=== PATIENT | female | born 1985 | race African-American/Black ===

== ENCOUNTER 2017-09-28 13:11 | Emergency (ER) | payer OTHER ==
[2017-09-28] MEDS ORDERED: NS 0.9% 1000 ML* 1,000 ML IV ONE (13:25)
[2017-09-28] MEDS ORDERED: Metoclopramide IV* 5 MG/ML 2 ML VIAL IV ONE (13:25)
[2017-09-28 14:08] LABS: ABS Basophils 0 10^3/ul (0-0.2); ABS Eosinophils 0 10^3/ul (0-0.6); ABS Lymphocytes 0.7 10^3/ul (1.0-4.8); ABS Monocytes 0.3 10^3/ul (0-0.8); ABS Neutrophils 8.4 10^3/ul (1.5-7.7); ABS Nucleated RBC 0 10^3/ul; Eosinophil % 0.1 % (0-6); Hematocrit 36 % (35-47); Lymphocyte % 7.7 % (25-47); Mean Corpuscular HGB Conc 34 g/dl (31-36); Mean Corpuscular Hemoglobin 30 pg (27-31); Mean Corpuscular Volume 90 fL (80-97); Mean Platelet Volume 8 um3 (7.4-10.4); Nucleated Red Blood Cells % 0; Platelet Count 212 10^3/ul (150-450); Red Blood Count 3.99 10^6/ul (4.0-5.4); Red Cell Distribution Width 13 % (10.5-15); White Blood Count 9.5 10^3/ul (3.5-10.8)
--- NOTE | 2017-09-28 14:17 | RAD ---
Indication: Left flank pain. CT of the abdomen and pelvis was performed without oral or IV contrast administration. Coronal and sagittal reconstructed images were obtained. Lung bases demonstrate no pleural fluid, nodules or masses. Heart is of normal size without evidence of pericardial effusion. Liver is normal in size. No focal lesions or intrahepatic ductal dilatation is noted. This bleeding is normal in size. The pancreas demonstrates no mass or pancreatic duct dilatation. Common duct is not dilated. The gallbladder demonstrates high density material in the dependent portion. I cannot totally exclude sludge within the gallbladder. No definite pericholecystic fluid is identified. No adrenal masses are noted. The left kidney is abnormal. There is a large high density crescent shaped mass surrounding the left kidney. There appears to be mass effect on the left kidney and this is consistent with a perinephric hematoma. The right kidney is unremarkable. No obvious hydronephrosis is noted. No retroperitoneal lymphadenopathy is noted. No dilated loops of bowel are noted. The uterus is ill-defined. Urinary bladder is unremarkable. I cannot exclude fluid or hemorrhage in the cul-de-sac. Colon is filled with stool. IMPRESSION: Large left perinephric hematoma. I cannot exclude free fluid or hemorrhage in the pelvis as the pelvic organs are poorly defined. Likely sludge within the gallbladder. Dr. Burden was notified of the results at 1413 hours.
[2017-09-28 14:30] LABS: EGFR Non-African American 76.4 (>60)
[2017-09-28 15:15] LABS: Urine Appearance Cloudy; Urine Blood Negative (Negative); Urine Color Yellow; Urine Ketones 1+ (Negative); Urine Protein 2+(100 mg/dL) (Negative); Urine Specific Gravity 1.016 (1.010-1.030); Urine Urobilinogen Negative (Negative)
[2017-09-28 16:05] VITALS: BP 118/81
--- NOTE | 2017-09-28 16:06 | ED ---
Dre Wheat Nilda, scribed for Carmelo Burden MD on 09/28/17 at 1337 . GI/ HPI - HPI Summary HPI Summary: This patient is a 32 year old F presenting to [facility] with a chief complaint of constant nausea for the past 2 weeks. She woke up today at 0500 with constant acute vomiting (7x [employer]), which is aggravated by PO intake, and alleviated by nothing. Patient reports moderate left flank pain radiating to lower back. The patient rates the pain 4/10 in severity. Patient denies burning with urination, urinary frequency, fever, and chills. LNMP 09/14/15. - History of Current Complaint Time Seen by Provider: 09/28/17 13:25 Stated Complaint: N/V FLANK PAIN Hx Obtained From: Patient Onset/Duration: Started Weeks Ago, Still Present Timing: Constant Current Severity: Moderate Location of Pain: Flank - left flank Pain Radiates to: Back Associated Signs and Symptoms: Positive: Other: - N/V, left flank pain radiating to lower back; negative burning with urination, frequency of urination , fever, and chills Aggravating Factor(s): Palpation Alleviating Factor(s): Nothing - Allergy/Home Medications Allergies/Adverse Reactions: Allergies Allergy/AdvReac Type Severity Reaction Status Date / Time loracarbef [From Lorabid] Allergy Intermediate Nausea Verified 09/28/17 13:56 PMH/Surg Hx/FS Hx/Imm Hx Sensory History: Denies: Hx Legally Blind EENT History: Denies: Hx Deafness - Surgical History Surgery Procedure, Year, and Place: Polypectomy uterine due to fibroids. - Family History Known Family History: Positive: Hypertension, Diabetes, Other - [place] - Social History Alcohol Use: None Hx Substance Use: No Substance Use Type: Reports: None Hx Tobacco Use: No Smoking Status (MU): Never Smoked Tobacco Review of Systems Negative: Fever, Chills Positive: Vomiting, Nausea Positive: flank pain - left radiating to lower back. Negative: burning, frequency All Other Systems Reviewed And Are Negative: Yes Physical Exam - Summary Physical Exam Summary: VITAL SIGNS: Reviewed. GENERAL: Patient is a well-developed and nourished female who is lying comfortable in the stretcher. Patient is not in any acute respiratory distress. HEAD AND FACE: No signs of trauma. No ecchymosis, hematomas or skull depressions. No sinus tenderness. EYES: PERRLA, EOMI x 2, No injected conjunctiva, no nystagmus. EARS: Hearing grossly intact. Ear canals and tympanic membranes are within normal limits. MOUTH: Oropharynx within normal limits. NECK: Supple, trachea is midline, no adenopathy, no JVD, no carotid bruit, no c- spine tenderness, neck with full ROM. CHEST: Symmetric, no tenderness at palpation LUNGS: Clear to auscultation bilaterally. No wheezing or crackles. CVS: Regular rate and rhythm, S1 and S2 present, no murmurs or gallops appreciated. ABDOMEN: Soft, mildly tender in pelvic area. No signs of distention. No rebound no guarding, and no masses palpated. Bowel sounds are normal. EXTREMITIES: FROM in all major joints, no edema, no cyanosis or clubbing. BACK: left CVA tenderness. NEURO: Alert and oriented x 3. No acute neurological deficits. Speech is normal and follows commands. SKIN: Dry and warm Triage Information Reviewed: Yes Vital Signs On Initial Exam: Initial Vitals Temp Pulse Resp BP Pulse Ox 99.2 F 71 16 124/87 100 09/28/17 14:27 09/28/17 14:27 09/28/17 14:27 09/28/17 14:27 09/28/17 14:27 Vital Signs Reviewed: Yes Diagnostics - Vital Signs Vital Signs Temp Pulse Resp BP Pulse Ox 09/28/17 14:27 99.2 F 71 16 124/87 100 - Laboratory Lab Results: Lab Results 09/28/17 09/28/17 09/28/17 Range/Units 13:56 13:56 13:56 WBC 9.5 (3.5-10.8) 10^3/ul RBC 3.99 L (4.0-5.4) 10^6/ul Hgb 12.0 (12.0-16.0) g/dl Hct 36 (35-47) % MCV 90 (80-97) fL MCH 30 (27-31) pg MCHC 34 (31-36) g/dl RDW 13 (10.5-15) % Plt Count 212 (150-450) 10^3/ul MPV 8 (7.4-10.4) um3 Neut % (Auto) 88.3 H (38-83) % Lymph % (Auto) 7.7 L (25-47) % [place] % (Auto) 3.5 (0-7) % Eos % (Auto) 0.1 (0-6) % Baso % (Auto) 0.4 (0-2) % Absolute Neuts (auto) 8.4 H (1.5-7.7) 10^3/ul Absolute Lymphs (auto) 0.7 L (1.0-4.8) 10^3/ul Absolute Monos (auto) 0.3 (0-0.8) 10^3/ul Absolute Eos (auto) 0 (0-0.6) 10^3/ul Absolute Basos (auto) 0 (0-0.2) 10^3/ul Absolute Nucleated RBC 0 10^3/ul Nucleated RBC % 0 Sodium 137 (133-145) mmol/L Potassium 3.7 (3.5-5.0) mmol/L Chloride 110 (101-111) mmol/L Carbon Dioxide 20 L (22-32) mmol/L Anion Gap 7 (2-11) mmol/L BUN 12 (6-24) mg/dL Creatinine 0.87 (0.51-0.95) mg/dL Est GFR ( Amer) 98.3 (>60) Est GFR (Non-Af Amer) 76.4 (>60) BUN/Creatinine Ratio 13.8 (8-20) Glucose 102 H (70-100) mg/dL Lactic Acid 1.1 (0.5-2.0) mmol/L Calcium 8.5 L (8.6-10.3) mg/dL Total Bilirubin 0.40 (0.2-1.0) mg/dL AST 13 (13-39) U/L ALT 7 (7-52) U/L Alkaline Phosphatase 34 (34-104) U/L C-Reactive Protein < 1.00 (< 5.00) mg/L Total Protein 6.6 (6.4-8.9) g/dL Albumin 3.8 (3.2-5.2) g/dL Globulin 2.8 (2-4) g/dL Albumin/Globulin Ratio 1.4 (1-3) Lipase < 10 L (11.0-82.0) U/L Beta HCG, Quant < 0.60 mIU/mL Urine Color Urine Appearance Urine pH (5-9) Ur Specific [place] (1.010-1.030) Urine Protein (Negative) Urine Ketones (Negative) Urine Blood (Negative) Urine Nitrate (Negative) Urine Bilirubin (Negative) Urine Urobilinogen (Negative) Ur Leukocyte Esterase (Negative) Urine WBC (Auto) (Absent) Urine RBC (Auto) (Absent) Ur Squamous Epith Cells (Absent) Urine Bacteria (Absent) Urine Glucose (Negative) 09/28/17 Range/Units 14:43 WBC (3.5-10.8) 10^3/ul RBC (4.0-5.4) 10^6/ul Hgb (12.0-16.0) g/dl Hct (35-47) % MCV (80-97) fL MCH (27-31) pg MCHC (31-36) g/dl RDW (10.5-15) % Plt Count (150-450) 10^3/ul MPV (7.4-10.4) um3 Neut % (Auto) (38-83) % Lymph % (Auto) (25-47) % [place] % (Auto) (0-7) % Eos % (Auto) (0-6) % Baso % (Auto) (0-2) % Absolute Neuts (auto) (1.5-7.7) 10^3/ul Absolute Lymphs (auto) (1.0-4.8) 10^3/ul Absolute Monos (auto) (0-0.8) 10^3/ul Absolute Eos (auto) (0-0.6) 10^3/ul Absolute Basos (auto) (0-0.2) 10^3/ul Absolute Nucleated RBC 10^3/ul Nucleated RBC % Sodium (133-145) mmol/L Potassium (3.5-5.0) mmol/L Chloride (101-111) mmol/L Carbon Dioxide (22-32) mmol/L Anion Gap (2-11) mmol/L BUN (6-24) mg/dL Creatinine (0.51-0.95) mg/dL Est GFR ( Amer) (>60) Est GFR (Non-Af Amer) (>60) BUN/Creatinine Ratio (8-20) Glucose (70-100) mg/dL Lactic Acid (0.5-2.0) mmol/L Calcium (8.6-10.3) mg/dL Total Bilirubin (0.2-1.0) mg/dL AST (13-39) U/L ALT (7-52) U/L Alkaline Phosphatase (34-104) U/L C-Reactive Protein (< 5.00) mg/L Total Protein (6.4-8.9) g/dL Albumin (3.2-5.2) g/dL Globulin (2-4) g/dL Albumin/Globulin Ratio (1-3) Lipase (11.0-82.0) U/L Beta HCG, Quant mIU/mL Urine Color Yellow Urine Appearance Cloudy Urine pH 5.0 (5-9) Ur Specific [place] 1.016 (1.010-1.030) Urine Protein 2+(100 mg/dl) A (Negative) Urine Ketones 1+ A (Negative) Urine Blood Negative (Negative) Urine Nitrate Negative (Negative) Urine Bilirubin Negative (Negative) Urine Urobilinogen Negative (Negative) Ur Leukocyte Esterase Negative (Negative) Urine WBC (Auto) Trace(0-5/hpf) (Absent) Urine RBC (Auto) 1+(3-5/hpf) A (Absent) Ur Squamous Epith Cells Present A (Absent) Urine Bacteria Absent (Absent) Urine Glucose Negative (Negative) Result Diagrams: 09/28/17 13:56 09/28/17 13:56 Lab Statement: Any lab studies that have been ordered have been reviewed, and results considered in the medical decision making process. - CT Abd/Pel CT Interpretation Completed By: Radiologist - CT Abd/Pel, per radiologist, reveals large left perinephric hematoma. I cannot exclude free fluid or hemorrhage in the pelvis as the pelvic organs are poorly defined. Likely sludge within the gallbladder. Dr. Burden has reviewed this radiology report. Re-Evaluation - Re-Evaluation First Eval Re-Evaluation Time: 15:54 Comment: Reviewed imaging and transfer plan with patient. Patient is agreeable to transfer. GIGU Course/Dx - Course Assessment/Plan: This patient is a 32 year old F presenting to [facility] with a chief complaint of constant nausea for the past 2 weeks. She woke up today at 0500 with constant acute vomiting (7x [employer] [employer]), which is aggravated by PO intake, and alleviated by nothing. Patient reports moderate left flank pain radiating to lower back. The patient rates the pain 4/10 in severity. Patient denies burning with urination, urinary frequency, fever, and chills. [facility] 09/14/15. In the ED course an IV access was obtained. Patient was placed in a quality assurance monitor. Patient was started with IV fluids. She did not require any medication for pain. She was given Reglan for nausea and vomiting. Labs without any significant abnormality. UA has RBC, ketones. Abdominal and pelvic CT: Indication: Left flank pain. CT of the abdomen and pelvis was performed without oral or IV contrast administration. Coronal and sagittal reconstructed images were obtained. Lung bases demonstrate no pleural fluid, nodules or masses. Heart is of normal size. without evidence of pericardial effusion. Liver is normal in size. No focal lesions or intrahepatic ductal dilatation is noted. This bleeding is normal in size. The pancreas demonstrates no mass or pancreatic duct dilatation. Common duct is not dilated. The gallbladder demonstrates high density material in the dependent portion. I cannot totally exclude sludge within the gallbladder. No definite pericholecystic fluid is identified. No adrenal masses are noted. The left kidney is abnormal. There is a large high density crescent shaped mass surrounding the left kidney. There appears to be mass effect on the left kidney and this is consistent with a perinephric hematoma. The right kidney is unremarkable. No obvious hydronephrosis is noted. No retroperitoneal lymphadenopathy is noted. No dilated loops of bowel are noted. The uterus is ill-defined. Urinary bladder is unremarkable. I cannot exclude fluid or. hemorrhage in the cul-de-sac. Colon is filled with stool. IMPRESSION: Large left perinephric hematoma. I cannot exclude free fluid or hemorrhage in the pelvis as the pelvic organs are poorly defined. Likely sludge within the gallbladder. Dr. Burden was notified of the results at 1413 hours. Patient has continued to be hemodynamically stable. At this time I discussed the case with [facility] and accepted patient for admission. Accepting physician is Silvia Perkins. Patient with be transferred via [facility] ambulance. Patient continues to be hemodynamically stable and A+O x3. [1544] Dr. Perkins ([facility] ) agrees to receive patient at [facility]. - Diagnoses Provider Diagnoses: Large left perinephric hematoma, Flank pain - Physician Notifications Discussed Care Of Patient With: Dr. Perkins - Physician [facility] Time Discussed With Above Provider: 15:44 Instructed by Provider To: Other - agrees to receive patient for transfer. - Critical Care Time Critical Care Time: 30-74 min Discharge - Discharge Plan Condition: Stable Disposition: TRANS HIGHER LVL OF CARE FAC Discharge Disposition Comment: Patient will be transferred to [facility]. Referrals: Lili Melvin [Nurse Practitioner] - The documentation as recorded by the Dre healy Nilda accurately reflects the service I personally performed and the decisions made by , Carmelo Burden MD.
== END 2017-09-28 17:09 | disposition short-term general hospital (02) ==
LOC: ED 13:11
DX: R10.84 Generalized abdominal pain (principal); M54.5 Low back pain
CPT/HCPCS: 36415; 74176; 80053; 81003; 81015; 83605; 83690; 84702; 85025; 86140; 87040; 87086; 96374; 99284; J2765